=== PATIENT | male | born 1980 | race Caucasian/White ===

== ENCOUNTER 2024-01-29 20:16 | Emergency (ER) | payer OTHER ==
[~2024-01-29] VITALS: Ht 170.2 cm; Wt 86.4 kg
[2024-01-29] MEDS ORDERED: Acetaminophen 325 MG TAB PO ONE (21:45)
[2024-01-29] MEDS ORDERED: Ibuprofen 400 MG TAB PO ONE (21:45)
[2024-01-29 22:34] VITALS: BP 123/84; PULSE 59
== END 2024-01-29 22:35 | disposition home or self-care (01) ==
LOC: COL.ER 20:16
DX: S23.41XA Sprain of ribs, initial encounter (principal); X50.9XXA Other and unspecified overexertion or strenuous movements or postures, initial encounter; Y92.009 Unspecified place in unspecified non-institutional (private) residence as the place of occurrence of the external cause